=== PATIENT | female | born 1935 | race Caucasian/White ===

== ENCOUNTER 2016-11-03 10:07 | Day surgery (SDC) | payer MEDICARE, OTHER ==
--- NOTE | ~2016-11-03 | EGD ---
EGD REPORT [facility] [address] [place] [place] [address] NAME: SUSAN BARILLAS : 39 STATUS : REG [facility]#: [id number] AGE: 81 ADM/REG DATE : 11/03/16 MR#: [id number] REPORT SERV DATE: 11/03/16 DICTATED BY: TYRON ONEIL DATE: 11/03/16 REPORT STATUS : Draft [facility]ANSCRIBED BY: [facility] DATE: 11/03/16 Endoscopy Center Patient Name: Susan Barillas Date of : 1935 Attending MD: TYRON ONEIL MD Procedure Date No Time: 11/03/2016 Procedure: Colonoscopy Indications: Heme positive stool, Iron deficiency anemia Referring MD: YOANNA DESAI Medicines: as per anesthesia Complications: No immediate complications. Procedure: Pre-Anesthesia Assessment: - ASA Grade Assessment: II - A patient with mild systemic disease. After I obtained informed consent, the scope was passed under direct vision. Throughout the procedure, the patient's blood pressure, pulse, and oxygen saturations were monitored continuously. The PCF [id number] was introduced through the anus and advanced to the cecum, identified by appendiceal orifice and ileocecal valve. The colonoscopy was somewhat difficult due to restricted mobility of the colon, significant looping and a tortuous colon. The patient tolerated the procedure. The quality of the bowel preparation was adequate to identify polyps. Findings: The perianal and digital rectal examinations were normal. Two sessile polyps were found in the ascending colon. The polyps were 3 to 4 mm in size. These polyps were removed with a cold biopsy forceps. Resection and retrieval were complete. Internal hemorrhoids were found during endoscopy and were mild. Impression: - Two 3 to 4 mm polyps in the ascending colon. Resected and retrieved. - Internal hemorrhoids. Recommendation: - Await pathology results. Procedure Code(s): --- Professional --- 86556, Colonoscopy, flexible, proximal to splenic flexure; with biopsy, single or multiple Diagnosis Code(s): --- Professional --- D12.2, Benign neoplasm of ascending colon EGD REPORT [address] [facility] [place] [address] NAME: SUSAN BARILLAS : [birth year] STATUS : REG [facility]#: [id number] AGE: 81 ADM/REG DATE : 11/03/16 MR#: [id number] REPORT SERV DATE: 11/03/16 DICTATED BY: TYRON ONEIL DATE: 11/03/16 REPORT STATUS : Draft TRANSCRIBED BY: [employer] DATE: 11/03/16 K64.8, Other hemorrhoids R19.5, Other fecal abnormalities D50.9, Iron deficiency anemia, unspecified CPT copyright 2013 [employer]. All rights reserved. The codes documented in this report are preliminary and upon assembler installer general review may be revised to meet current compliance requirements. TYRON ONEIL MD 11/03/2016 1:06 PM This report has been signed electronically. Number of Addenda: 0 Note Initiated On: 11/03/2016 12:25 PM Scope Withdrawal Time 0 hours 9 minutes 25 seconds [address] [place] [address]
--- NOTE | ~2016-11-03 | EGD ---
EGD REPORT [facility] [address] [place] [address] NAME: SUSAN BARILLAS : [birth year] STATUS : REG [facility]#: [id number] AGE: 81 ADM/REG DATE : 11/03/16 MR#: [id number] REPORT SERV DATE: 11/03/16 DICTATED BY: TYRON ONEIL DATE: 11/03/16 REPORT STATUS : Draft TRANSCRIBED BY: [facility] DATE: 11/03/16 Endoscopy Center Patient Name: Susan Barillas Date of : 1935 Attending MD: TYRON ONEIL MD Procedure Date No Time: 11/03/2016 Procedure: Upper GI endoscopy Indications: Iron deficiency anemia, Heme positive stool Referring MD: YOANNA DESAI Medicines: as per anesthesia Complications: No immediate complications. Procedure: Pre-Anesthesia Assessment: - ASA Grade Assessment: II - A patient with mild systemic disease. After obtaining informed consent, the endoscope was passed under direct vision. Throughout the procedure, the patient's blood pressure, pulse, and oxygen saturations were monitored continuously. The GIF [id number] was introduced through the mouth, and advanced to the third part of duodenum. The upper GI endoscopy was accomplished without difficulty. The patient tolerated the procedure. Findings: The examined esophagus was normal. A large hiatus hernia was present. The examined duodenum was normal. Biopsies were taken with a cold forceps for histology. Impression: - Normal esophagus. - Hiatus hernia. - Normal examined duodenum. Biopsied. Recommendation: - Await pathology results. Procedure Code(s): --- Professional --- 51091, Esophagogastroduodenoscopy, flexible, transoral; with biopsy, single or multiple Diagnosis Code(s): --- Professional --- K44.9, Diaphragmatic hernia without obstruction or gangrene D50.9, Iron deficiency anemia, unspecified R19.5, Other fecal abnormalities EGD REPORT [facility] [address] [place] [address] [place] [address] NAME: SUSAN BARILLAS : 39 STATUS : REG [facility] PAT#: [id number] AGE: 81 ADM/REG DATE : 11/03/16 MR#: [id number] REPORT SERV DATE: 11/03/16 DICTATED BY: TYRON ONEIL. DATE: 11/03/16 REPORT STATUS : Draft TRANSCRIBED BY: [employer] DATE: 11/03/16 CPT copyright 2013 [employer]. All rights reserved. The codes documented in this report are preliminary and upon remote medical coder review may be revised to meet current compliance requirements. TYRON ONEIL MD 11/03/2016 12:38 PM This report has been signed electronically. Number of Addenda: 0 Note Initiated On: 11/03/2016 12:26 PM Scope Withdrawal Time 0 hours 0 minutes 0 seconds [address] [place] [address]
[~2016-11-03 10:07] MED LIST: ASAB PO; ATACAND32 MG PO; AUG875 PO; CALTRA600D PO; ISOPTINSR PO; LEVOTHYROXIN100 MCG PO; MICARDIS80 PO; MOBIC15 MG PO; NIASPAN500 PO; PRILO PO; PROBIOTIC PO; SLOW FE160 MG PO; VERELANPM2 PO; ZOCOR40 PO
== END 2016-11-03 23:59 | disposition home or self-care (01) ==
LOC: DMU 10:07
PROVIDERS: Internal Medicine Gastroenterology
PROC: 0DBK8ZX Excision of Ascending Colon, Via Natural or Artificial Opening Endoscopic, Diagnostic (ICD-10-PCS; principal; 2016-11-03 11:30)
PROC: 0DB98ZX Excision of Duodenum, Via Natural or Artificial Opening Endoscopic, Diagnostic (ICD-10-PCS; 2016-11-03 11:30)
DX: D12.2 Benign neoplasm of ascending colon (principal); K64.8 Other hemorrhoids; K44.9 Diaphragmatic hernia without obstruction or gangrene; G43.909 Migraine, unspecified, not intractable, without status migrainosus; I10 Essential (primary) hypertension; E78.00 Pure hypercholesterolemia, unspecified; E03.9 Hypothyroidism, unspecified; E78.5 Hyperlipidemia, unspecified; Z79.899 Other long term (current) drug therapy; Z79.52 Long term (current) use of systemic steroids; Z96.653 Presence of artificial knee joint, bilateral; Z98.890 Other specified postprocedural states; Z90.49 Acquired absence of other specified parts of digestive tract; Z90.711 Acquired absence of uterus with remaining cervical stump
CPT/HCPCS: 88305